=== PATIENT | female | born 1960 | race Caucasian/White ===

== ENCOUNTER 2019-11-29 02:43 | Emergency (ER) | payer BC ==
[2019-11-29 02:51] VITALS: RESP 18
--- NOTE | 2019-11-29 03:17 | ED ---
Fall HPI - General Chief Complaint: Fall Stated Complaint: Fall Time Seen by Provider: 11/29/19 02:47 Source: patient, EMS, RN notes reviewed, old records reviewed Mode of arrival: EMS - History of Present Illness Initial Comments: This is a 59-year-old female DF for evaluation she presents today for status post fall. Patient has fall with right wrist injury. Patient believes versus broken. Follows a trip and fall she was walking out of the dark which with the bathroom. No other injuries noted. She presents by EMS EMS denies any other injuries noted. 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 ROS Other: All systems not noted in ROS Statement are negative. Past Medical History Past Medical History: No Reported History History of Any Multi-Drug Resistant Organisms: None Reported Additional Past Surgical History / Comment(s): Facial plates Past Psychological History: Anxiety, Depression Smoking Status: Former smoker Past Alcohol Use History: Daily Past Drug Use History: None Reported General Exam Limitations: no limitations General appearance: alert, in no apparent distress Head exam: Present: atraumatic, normocephalic, normal inspection Eye exam: Present: normal appearance, PERRL, EOMI. Absent: scleral icterus, conjunctival injection, periorbital swelling ENT exam: Present: normal exam, mucous membranes moist Neck exam: Present: normal inspection. Absent: tenderness, meningismus, lymphadenopathy Respiratory exam: Present: normal lung sounds bilaterally. Absent: respiratory distress, wheezes, rales, rhonchi, stridor Cardiovascular Exam: Present: regular rate, normal rhythm, normal heart sounds. Absent: systolic murmur, diastolic murmur, rubs, gallop, clicks GI/Abdominal exam: Present: soft, normal bowel sounds. Absent: distended, tenderness, guarding, rebound, rigid Extremities exam: Present: normal inspection, full ROM, normal capillary refill, other (right right wrist does show deformity). Absent: tenderness, pedal edema, joint swelling, calf tenderness Back exam: Present: normal inspection Neurological exam: Present: alert, oriented X3, CN II-XII intact Psychiatric exam: Present: normal affect, normal mood Skin exam: Present: warm, dry, intact, normal color. Absent: rash Course Vital Signs 11/29/19 02:45 Temperature 98.3 F Pulse Rate 85 Respiratory 18 Rate Blood Pressure 105/81 O2 Sat by Pulse 99 Oximetry - Reevaluation(s) Reevaluation #1: 11/29/19 04:06 Medical records reviewed Reevaluation #2: 11/29/19 04:06 Patient is not requiring pain medication Reevaluation #3: 11/29/19 04:06 Patient informed of results and questions answered Medical Decision Making - Medical Decision Making 59 female DF for evaluation significant right wrist pain she has have impacted radius no significant ulnar fracture difficult to reduce patient will be placed in splint and follow-up with orthopedics - Radiology Data Radiology results: report reviewed (X-rays impacted radial fracture), image reviewed Disposition Clinical Impression: Fall, Right radial fracture Disposition: HOME SELF-CARE Condition: Good Instructions (If sedation given, give patient instructions): Wrist Fracture in Adults (ED) Is patient prescribed a controlled substance at d/c from ED?: No Referrals: Manolo Fallon MD [Primary Care Provider] - 1-2 days
--- NOTE | 2019-11-29 03:58 | XR ---
EXAMINATION TYPE: XR wrist complete RT DATE OF EXAM: 11/29/2019 COMPARISON: NONE HISTORY: Fall. Wrist pain TECHNIQUE: 3 views FINDINGS: There is impacted transverse comminuted fracture of the distal radius 1 cm from the wrist j oint. There is mildly displaced fracture ulnar styloid process. There is no dislocation. Carpal bones are intact. Base of the fifth metacarpal is slightly irregular. There could BE a small chip fracture . IMPRESSION: Impacted comminuted distal radius fracture. No dislocation. Ulnar styloid process fractur e. Possible nondisplaced chip fracture of the base of the fifth metacarpal.
[2019-11-29] MEDS ORDERED: ACETAMINOPHEN TAB 500 MG TAB PO STA (04:35)
[2019-11-29] MEDS ORDERED: IBUPROFEN 600 MG TAB PO STA (04:35)
[2019-11-29] MEDS ORDERED: IBUPROFEN 600 MG STARTER PACK 4 TAB BTL PO STA (04:35)
[2019-11-29 04:58] VITALS: BP 111/78; PULSE 88; TEMP 98.9
== END 2019-11-29 04:58 | disposition home or self-care (01) ==
LOC: EC 02:43
DX: S52.591A Other fractures of lower end of right radius, initial encounter for closed fracture (principal); F41.9 Anxiety disorder, unspecified; Z87.891 Personal history of nicotine dependence; W01.0XXA Fall on same level from slipping, tripping and stumbling without subsequent striking against object, initial encounter; Y93.01 Activity, walking, marching and hiking; Y92.002 Bathroom of unspecified non-institutional (private) residence as the place of occurrence of the external cause
CPT/HCPCS: 99284

== ENCOUNTER → 2019-12-02 | Outpatient (CLI) | payer BC ==
--- NOTE | 2019-12-02 11:49 | CT ---
EXAMINATION TYPE: CT wrist RT wo con DATE OF EXAM: 12/02/2019 COMPARISON: Radiograph 11/29/2019 HISTORY: 59-year-old female Post reduction, right wrist TECHNIQUE: Contiguous axial scanning of the right wrist without IV contrast. Coronal and sagittal rec onstructions performed. Reconstructions generated on a dedicated independent workstation. CT DLP: 136.0 mGycm Automated exposure control for dose reduction was used. FINDINGS: Overlying plaster cast. Some improvement in the degree of angulation of the distal radial fracture. T here is residual 3 mm of dorsal displacement. The distal radial metaphyseal and epiphyseal fracture i s comminuted with intra-articular extension into the radial scaphoid joint. No significant articular surface and congruence. Overall neutral angulation at this time. Nondisplaced fracture extension also into the distal radioulnar joint. Nondisplaced fracture across the base of the ulnar styloid process. IMPRESSION: 1. IMPROVEMENT IN THE DEGREE OF DORSAL ANGULATION. THERE IS OVERALL NEUTRAL ANGULATION NOW OF THE COM MINUTED DISTAL RADIAL METAPHYSEAL AND EPIPHYSEAL FRACTURE. 2. INTRA-ARTICULAR EXTENSION INTO THE RADIOSCAPHOID AND DISTAL RADIAL ULNAR JOINTS. NO SIGNIFICANT AR TICULAR SURFACE INCONGRUITY. 3. 3 MM OF OVERALL DORSAL DISPLACEMENT. 4. ADDITIONAL NONDISPLACED FRACTURE ACROSS THE BASE OF THE ULNAR STYLOID PROCESS.
== END | disposition home or self-care (01) ==
LOC: RADCTMAIN 10:53
PROVIDERS: ATTEND Orthopaedic Surgery
DX: M21.831 Other specified acquired deformities of right forearm (principal); S63.094A Other dislocation of right wrist and hand, initial encounter; S52.611A Displaced fracture of right ulna styloid process, initial encounter for closed fracture